=== PATIENT | female | born 1955 | race Caucasian/White ===

== ENCOUNTER → 2017-01-17 | Outpatient (CLI) | payer MEDICARE | END | disposition short-term general hospital (02) | LOC: CLVASC 15:04 | DX: I73.9 Peripheral vascular disease, unspecified (principal); L97.929 Non-pressure chronic ulcer of unspecified part of left lower leg with unspecified severity ==

== ENCOUNTER → 2017-03-14 | Outpatient (CLI) | payer MEDICARE | END | disposition short-term general hospital (02) | LOC: CLVASC 13:41 | DX: T81.89XD Other complications of procedures, not elsewhere classified, subsequent encounter (principal); I73.9 Peripheral vascular disease, unspecified; Z95.828 Presence of other vascular implants and grafts ==